=== PATIENT | female | born 1985 | race Hispanic/Latino ===

== ENCOUNTER 2020-09-09 22:16 | Emergency (ER) | payer OTHER ==
[~2020-09-09] VITALS: Ht 157.5 cm; Wt 119.3 kg
[2020-09-09] MEDS ORDERED: BACTRIM DS TAB1 EACH PO (23:40)
== END 2020-09-09 23:45 | disposition home or self-care (01) ==
LOC: FSED 23:37
DX: L02.214 Cutaneous abscess of groin (principal); I10 Essential (primary) hypertension; E11.9 Type 2 diabetes mellitus without complications; E78.5 Hyperlipidemia, unspecified; J45.909 Unspecified asthma, uncomplicated
CPT/HCPCS: 99283

== ENCOUNTER 2020-10-10 15:13 | Emergency (ER) | payer OTHER ==
[~2020-10-10] VITALS: Ht 157.5 cm; Wt 118.8 kg
[~2020-10-10 15:13] MED LIST: BACTRIM DS TAB1 EACH PO
[2020-10-10] MEDS ORDERED: ACETAMINOPHEN 325 MG TAB PO ONE (15:45)
[2020-10-10] MEDS ORDERED: FAMOTIDINE 20 MG/2 ML VIAL IV ONE ×2 (15:45→16:43)
[2020-10-10] MEDS ORDERED: FAMOTIDINE20 MG PO (16:33)
[2020-10-10] MEDS ORDERED: ACETAMINOPHEN500 MG PO (16:33)
[2020-10-10] MEDS ORDERED: IBUPROFEN IB200 MG PO (16:33)
[2020-10-10] MEDS ORDERED: ACETAMINOPHEN 325 MG TAB ONE (16:42)
== END 2020-10-10 17:11 | disposition home or self-care (01) ==
LOC: FSED 15:45
DX: R07.89 Other chest pain (principal); R00.0 Tachycardia, unspecified; R94.31 Abnormal electrocardiogram [ECG] [EKG]; I10 Essential (primary) hypertension; E11.9 Type 2 diabetes mellitus without complications; E78.5 Hyperlipidemia, unspecified; J45.909 Unspecified asthma, uncomplicated; F43.10 Post-traumatic stress disorder, unspecified
CPT/HCPCS: 71046; 80053; 81003; 82553; 84484; 85025; 93005; 99284

== ENCOUNTER 2020-11-06 19:41 | Emergency (ER) | payer OTHER ==
[~2020-11-06] VITALS: Ht 157.5 cm; Wt 118.8 kg
[~2020-11-06 19:41] MED LIST changes: +ACETAMINOPHEN500 MG PO; +FAMOTIDINE20 MG PO; +IBUPROFEN IB200 MG PO
[2020-11-06] MEDS ORDERED: SODIUM CHLORIDE 0.9% 1000ML 1,000 ML IV STA (20:43)
[2020-11-06] MEDS ORDERED: ONDANSETRON HCL INJ 2MG/ML 2ML 2 MG/ML VIAL IV ONE (20:45)
[2020-11-06] MEDS ORDERED: FAMOTIDINE 20 MG/2 ML VIAL IV ONE ×2 (20:45→22:01)
[2020-11-06] MEDS ORDERED: KETOROLAC TROMETHAMINE 30 MG/ML VIAL IV ONE (20:45)
[2020-11-06] MEDS ORDERED: SODIUM CHLORIDE 0.9% 50ML 50 ML ONE (21:06)
[2020-11-06] MEDS ORDERED: IOPAMIDOL 370 MG/ML 200 ML INFUS..BTL INJ ONE (21:06)
[2020-11-06] MEDS ORDERED: SODIUM CHLORIDE 0.9% 1000ML 1,000 ML ONE (22:01)
[2020-11-06] MEDS ORDERED: KETOROLAC TROMETHAMINE 30 MG/ML VIAL ONE (22:01)
[2020-11-06] MEDS ORDERED: ONDANSETRON HCL INJ 2MG/ML 2ML 2 MG/ML VIAL ONE (22:01)
[2020-11-06] MEDS ORDERED: OMEPRAZOLE40 MG PO (22:50)
[2020-11-06] MEDS ORDERED: ONDANSETRON ODT4 MG PO (22:50)
[2020-11-06 23:06] VITALS: BP 121/63
== END 2020-11-06 23:06 | disposition home or self-care (01) ==
LOC: FSED 20:40
DX: R10.11 Right upper quadrant pain (principal); R11.0 Nausea; R16.0 Hepatomegaly, not elsewhere classified; K76.0 Fatty (change of) liver, not elsewhere classified; E11.65 Type 2 diabetes mellitus with hyperglycemia; I10 Essential (primary) hypertension; E78.5 Hyperlipidemia, unspecified; J45.909 Unspecified asthma, uncomplicated; F32.9 Major depressive disorder, single episode, unspecified
CPT/HCPCS: 74176; 80053; 81003; 85025; 96374; 96375; 96376; 99284; J1885; J2405; J7030; Q9967

== ENCOUNTER 2020-12-15 13:53 | Emergency (ER) | payer OTHER ==
[~2020-12-15] VITALS: Ht 157.5 cm; Wt 117.5 kg
[~2020-12-15 13:53] MED LIST changes: +OMEPRAZOLE40 MG PO; +ONDANSETRON ODT4 MG PO
[2020-12-15] MEDS ORDERED: CIPRO500 MG PO (15:35)
[2020-12-15] MEDS ORDERED: OXYBUTYNIN CHLOR5 MG PO (15:38)
== END 2020-12-15 15:51 | disposition home or self-care (01) ==
LOC: FSED 14:42
DX: N32.81 Overactive bladder (principal); R39.11 Hesitancy of micturition; E11.9 Type 2 diabetes mellitus without complications; I10 Essential (primary) hypertension; E03.9 Hypothyroidism, unspecified; E78.5 Hyperlipidemia, unspecified; F31.9 Bipolar disorder, unspecified; J45.909 Unspecified asthma, uncomplicated; F17.210 Nicotine dependence, cigarettes, uncomplicated
CPT/HCPCS: 81003; 99283

== ENCOUNTER 2021-02-03 17:30 | Emergency (ER) | payer OTHER ==
[~2021-02-03] VITALS: Ht 167.6 cm; Wt 117.5 kg
[~2021-02-03 17:30] MED LIST changes: +CIPRO500 MG PO; +OXYBUTYNIN CHLOR5 MG PO
[2021-02-03] MEDS ORDERED: ONDANSETRON HCL INJ 2MG/ML 2ML 2 MG/ML VIAL IV STA (18:32)
[2021-02-03] MEDS ORDERED: Morphine 4mg Syringe 4 MG/ML INJ IV STA (18:32)
[2021-02-03] MEDS ORDERED: SODIUM CHLORIDE 0.9% 50ML 50 ML ONE (18:36)
[2021-02-03] MEDS ORDERED: IOPAMIDOL 370 MG/ML 200 ML INFUS..BTL INJ ONE (18:37)
== END 2021-02-03 19:58 | disposition home or self-care (01) ==
LOC: FSED 17:42
DX: R10.31 Right lower quadrant pain (principal); I10 Essential (primary) hypertension; E11.9 Type 2 diabetes mellitus without complications; E78.5 Hyperlipidemia, unspecified; E03.9 Hypothyroidism, unspecified; J45.909 Unspecified asthma, uncomplicated; F31.9 Bipolar disorder, unspecified
CPT/HCPCS: 74176; 80053; 81003; 81025; 85025; 99283; Q9967

== ENCOUNTER 2021-04-10 10:52 | Emergency (ER) | payer OTHER ==
[~2021-04-10] VITALS: Ht 157.5 cm; Wt 100.3 kg
[2021-04-10] MEDS ORDERED: CLINDAMYCIN 600MG / 50ML 50 ML IV ONE ×2 (13:33→14:00)
[2021-04-10] MEDS ORDERED: LIDOCAINE HCL 1% LOCAL INJ 20 ML VIAL ONE (13:33)
[2021-04-10] MEDS ORDERED: CLEOCIN HCL300 MG PO (14:42)
[2021-04-10] MEDS ORDERED: BACTRIM DS TAB1 EACH PO (14:42)
[2021-04-10] MEDS ORDERED: HYDROCODON-ACE1 EA12 PO (14:43)
[2021-04-10] MEDS ORDERED: MUPIROCIN22 GM TOP (14:54)
[2021-04-10 15:01] VITALS: BP 100/69
== END 2021-04-10 15:01 | disposition home or self-care (01) ==
LOC: FSED 11:36
DX: N61.1 Abscess of the breast and nipple (principal); L02.416 Cutaneous abscess of left lower limb; E11.9 Type 2 diabetes mellitus without complications; I10 Essential (primary) hypertension; E78.5 Hyperlipidemia, unspecified; E03.9 Hypothyroidism, unspecified; F43.10 Post-traumatic stress disorder, unspecified; F31.9 Bipolar disorder, unspecified
CPT/HCPCS: 10061; 80053; 85025; 99283; J2001

== ENCOUNTER 2021-09-15 07:20 | Emergency (ER) | payer OTHER ==
[~2021-09-15] VITALS: Ht 157.5 cm; Wt 81.6 kg
[~2021-09-15 07:20] MED LIST changes: +CLEOCIN HCL300 MG PO; +HYDROCODON-ACE1 EA12 PO; +MUPIROCIN22 GM TOP; +NAPROSYN500 MG PO
[2021-09-15] MEDS ORDERED: PREDNISONE20 MG PO (09:19)
[2021-09-15] MEDS ORDERED: PROVENTIL HFA6.7 GM INH (09:19)
== END 2021-09-15 09:20 | disposition home or self-care (01) ==
LOC: FSED 07:59
DX: R06.00 Dyspnea, unspecified (principal); J45.909 Unspecified asthma, uncomplicated; R00.1 Bradycardia, unspecified; I10 Essential (primary) hypertension; E78.5 Hyperlipidemia, unspecified; E03.9 Hypothyroidism, unspecified; R94.31 Abnormal electrocardiogram [ECG] [EKG]
CPT/HCPCS: 71045; 80053; 85025; 85379; 93005; 99283

== ENCOUNTER 2021-09-21 16:30 | Emergency (ER) | payer OTHER ==
[~2021-09-21] VITALS: Ht 157.5 cm; Wt 81.6 kg
[~2021-09-21 16:30] MED LIST changes: +PREDNISONE20 MG PO; +PROVENTIL HFA6.7 GM INH
[2021-09-21 17:05] VITALS: BP 100/65
[2021-09-21] MEDS ORDERED: MULTI-VITAMIN1 EACH PO (17:11)
[2021-09-21] MEDS ORDERED: MELATONIN3 MG PO (17:11)
[2021-09-21] MEDS ORDERED: SODIUM CHLORIDE 0.9% 1000ML 1,000 ML IV ONE (17:30)
[2021-09-21] MEDS ORDERED: SODIUM CHLORIDE 0.9% 1000ML 1,000 ML ONE (17:54)
== END 2021-09-21 20:09 | disposition home or self-care (01) ==
LOC: FSED 16:38
DX: R00.2 Palpitations (principal); R42 Dizziness and giddiness; I10 Essential (primary) hypertension; E78.5 Hyperlipidemia, unspecified; E03.9 Hypothyroidism, unspecified; J45.909 Unspecified asthma, uncomplicated; F31.9 Bipolar disorder, unspecified; Z98.84 Bariatric surgery status; F17.210 Nicotine dependence, cigarettes, uncomplicated
CPT/HCPCS: 93005; 99283; J7030

== ENCOUNTER 2021-10-27 09:50 | Emergency (ER) | payer OTHER ==
[~2021-10-27] VITALS: Ht 157.5 cm; Wt 81.6 kg
[~2021-10-27 09:50] MED LIST changes: +MELATONIN3 MG PO; +MULTI-VITAMIN1 EACH PO
[2021-10-27] MEDS ORDERED: ONDANSETRON HCL INJ 2MG/ML 2ML 2 MG/ML VIAL IV STA (10:19)
[2021-10-27] MEDS ORDERED: FAMOTIDINE 20 MG/2 ML VIAL IV STA (10:19)
[2021-10-27] MEDS ORDERED: DICYCLOMINE HCL 20 MG/2 ML VIAL IM ONE ×2 (10:30→10:42)
[2021-10-27] MEDS ORDERED: SODIUM CHLORIDE 0.9% 1000ML 1,000 ML IV SCH (10:30)
[2021-10-27] MEDS ORDERED: ONDANSETRON HCL INJ 2MG/ML 2ML 2 MG/ML VIAL ONE (10:42)
[2021-10-27] MEDS ORDERED: SODIUM CHLORIDE 0.9% 1000ML 1,000 ML ONE (10:42)
[2021-10-27] MEDS ORDERED: FAMOTIDINE 20 MG/2 ML VIAL IV ONE (10:43)
[2021-10-27] MEDS ORDERED: DIATRIZOATE MEGL/DIATRIZOA SOD 30 ML BTL PO ONE (10:49)
[2021-10-27] MEDS ORDERED: IOPAMIDOL 370 MG/ML 100 ML INFUS..BTL INJ ONE (10:49)
[2021-10-27] MEDS ORDERED: ONDANSETRON ODT4 MG PO (12:31)
[2021-10-27] MEDS ORDERED: DICYCLOMINE HCL20 MG PO (12:31)
== END 2021-10-27 12:45 | disposition home or self-care (01) ==
LOC: FSED 10:14
DX: R10.9 Unspecified abdominal pain (principal); R11.2 Nausea with vomiting, unspecified; R91.8 Other nonspecific abnormal finding of lung field; I10 Essential (primary) hypertension; E78.5 Hyperlipidemia, unspecified; E03.9 Hypothyroidism, unspecified; F31.9 Bipolar disorder, unspecified; F43.10 Post-traumatic stress disorder, unspecified; Z98.84 Bariatric surgery status; F17.210 Nicotine dependence, cigarettes, uncomplicated
CPT/HCPCS: 74177; 80053; 81003; 81025; 85025; 99284; J0500; J2405; J7030; Q9967

== ENCOUNTER 2022-03-14 20:42 | Emergency (ER) | payer OTHER ==
[~2022-03-14] VITALS: Ht 157.5 cm; Wt 77.1 kg
[~2022-03-14 20:42] MED LIST changes: +AMOX TR-K CLV1 EAC2 PO; +DICYCLOMINE HCL20 MG PO
[2022-03-14] MEDS ORDERED: SODIUM CHLORIDE 0.9% 1000ML 1,000 ML IV STA (21:03)
[2022-03-14] MEDS ORDERED: ONDANSETRON HCL INJ 2MG/ML 2ML 2 MG/ML VIAL IV ONE (21:15)
[2022-03-14] MEDS ORDERED: KETOROLAC TROMETHAMINE 30 MG/ML VIAL IV ONE (21:15)
[2022-03-14] MEDS ORDERED: SODIUM CHLORIDE 0.9% 1000ML 1,000 ML ONE (21:44)
[2022-03-14] MEDS ORDERED: ONDANSETRON HCL INJ 2MG/ML 2ML 2 MG/ML VIAL ONE (21:44)
[2022-03-14] MEDS ORDERED: KETOROLAC TROMETHAMINE 30 MG/ML VIAL ONE (21:44)
[2022-03-14 22:21] VITALS: BP 105/61
== END 2022-03-14 22:21 | disposition home or self-care (01) ==
LOC: FSED 20:54
DX: R11.2 Nausea with vomiting, unspecified (principal); K52.9 Noninfective gastroenteritis and colitis, unspecified; R10.31 Right lower quadrant pain; I10 Essential (primary) hypertension; E78.5 Hyperlipidemia, unspecified; E03.9 Hypothyroidism, unspecified; J45.909 Unspecified asthma, uncomplicated; F31.9 Bipolar disorder, unspecified; Z98.84 Bariatric surgery status; F17.210 Nicotine dependence, cigarettes, uncomplicated
CPT/HCPCS: 74176; 80048; 80076; 81003; 85025; 96374; 96375; 96376; 99284; C9113; J1885; J2405; J7030

== ENCOUNTER 2022-08-25 23:59 | Emergency (ER) | payer OTHER ==
[~2022-08-25] VITALS: Ht 157.5 cm; Wt 82.1 kg
[2022-08-26] MEDS ORDERED: ALBUTEROL SULF 0.083% NEB SOLN 3 ML NEB NEB STA (00:14)
[2022-08-26] MEDS ORDERED: PEPCID20 MG PO (00:19)
[2022-08-26] MEDS ORDERED: ZITHROMAX250 MG PO (00:19)
[2022-08-26] MEDS ORDERED: ALBUTEROL SULF 0.083% NEB SOLN 3 ML NEB ONE (00:26)
[2022-08-26 00:45] VITALS: BP 109/62
== END 2022-08-26 00:45 | disposition home or self-care (01) ==
LOC: FSED 08-26 00:03
DX: R05.9 Cough, unspecified (principal); J20.9 Acute bronchitis, unspecified; I10 Essential (primary) hypertension; E03.9 Hypothyroidism, unspecified; K21.9 Gastro-esophageal reflux disease without esophagitis; F43.10 Post-traumatic stress disorder, unspecified; F17.210 Nicotine dependence, cigarettes, uncomplicated; Z98.84 Bariatric surgery status
CPT/HCPCS: 99282

== ENCOUNTER 2023-05-18 20:00 | Emergency (ER) | payer OTHER ==
[~2023-05-18] VITALS: Ht 157.5 cm; Wt 79.8 kg
[~2023-05-18 20:00] MED LIST changes: +ALBUTEROL2.5 MG/3 M INH; +CEFDINIR300 MG PO; +DOCUSATE SODIU100 MG PO; +DOXYCYCLINE MO100 M1 PO; +IBUPROFEN600 MG PO; +METRONIDAZOLE500 MG PO; +MIRALAX17 GM PO; +PEPCID20 MG PO; +ZITHROMAX250 MG PO
[2023-05-18] MEDS ORDERED: SODIUM CHLORIDE 0.9% 1000ML 1,000 ML IV STA (20:16)
[2023-05-18] MEDS ORDERED: KETOROLAC TROMETHAMINE 30 MG/ML VIAL IV STA (20:16)
[2023-05-18] MEDS ORDERED: FAMOTIDINE 20 MG/2 ML VIAL IV ONE ×2 (20:30→20:32)
[2023-05-18] MEDS ORDERED: ACETAMINOPHEN 325 MG TAB PO ONE (20:30)
[2023-05-18] MEDS ORDERED: ONDANSETRON HCL INJ 2MG/ML 2ML 2 MG/ML VIAL IV ONE (20:30)
[2023-05-18] MEDS ORDERED: SODIUM CHLORIDE 0.9% 1000ML 1,000 ML ONE (20:31)
[2023-05-18] MEDS ORDERED: KETOROLAC TROMETHAMINE 30 MG/ML VIAL ONE (20:31)
[2023-05-18] MEDS ORDERED: ONDANSETRON HCL INJ 2MG/ML 2ML 2 MG/ML VIAL ONE (20:31)
[2023-05-18] MEDS ORDERED: ACETAMINOPHEN 325 MG TAB ONE (20:31)
[2023-05-18] MEDS ORDERED: ONDANSETRON ODT4 MG PO (23:15)
[2023-05-18] MEDS ORDERED: ULTRAM 50MG50 MG PO (23:15)
[2023-05-18] MEDS ORDERED: IBUPROFEN200 MG PO (23:15)
[2023-05-18 23:38] VITALS: BP 109/72; PULSE 88; RESP 18; TEMP 97.6; O2SAT 97
== END 2023-05-18 23:38 | disposition home or self-care (01) ==
LOC: FSED 20:04
DX: R10.2 Pelvic and perineal pain (principal); N83.202 Unspecified ovarian cyst, left side; I10 Essential (primary) hypertension; E78.5 Hyperlipidemia, unspecified; E03.9 Hypothyroidism, unspecified; J45.909 Unspecified asthma, uncomplicated; K21.9 Gastro-esophageal reflux disease without esophagitis; F43.10 Post-traumatic stress disorder, unspecified; Z98.84 Bariatric surgery status; F17.210 Nicotine dependence, cigarettes, uncomplicated
CPT/HCPCS: 74176; 80053; 81003; 81025; 85025; 93976; 96374; 96375; 99284; J1885; J2405; J7030

== ENCOUNTER 2023-12-27 17:30 | Emergency (ER) | payer OTHER ==
[~2023-12-27] VITALS: Ht 157.5 cm; Wt 81.6 kg
[~2023-12-27 17:30] MED LIST changes: +FIORICET 50-301 EACH PO; +IBUPROFEN200 MG PO; +ULTRAM 50MG50 MG PO
[2023-12-27 17:35] VITALS: PULSE 90; RESP 18; TEMP 99.4; O2SAT 98
[2023-12-27] MEDS ORDERED: IOPAMIDOL 370 MG/ML 100 ML INFUS..BTL INJ ONE (18:09)
[2023-12-27] MEDS ORDERED: DONNATAL/LIDOCAINE/MAALOX 30 ML SUSP PO ONE (18:15)
[2023-12-27] MEDS: LIDOCAINE VISC 2% SOLN 15 ML UDC PO ONE (18:50)
[2023-12-27] MEDS: FAMOTIDINE 20 MG/2 ML VIAL IV STA (18:51)
[2023-12-27] MEDS: MAGNESIUM/ALUMINUM/SIMETHICONE 30 ML UDC PO ONE (18:51)
[2023-12-27] MEDS: ONDANSETRON HCL INJ 2MG/ML 2ML 2 MG/ML VIAL IV STA (18:51)
[2023-12-27] MEDS: BELLADONNA ALK/PHENOBARBITAL 5 ML UDC PO ONE (18:52)
== END 2023-12-27 19:31 | disposition home or self-care (01) ==
LOC: FSED 18:06
DX: R10.13 Epigastric pain (principal); Z98.84 Bariatric surgery status
CPT/HCPCS: 74177; 99284; J2405; Q9967

== ENCOUNTER 2024-01-08 08:41 | Emergency (ER) | payer OTHER ==
[~2024-01-08] VITALS: Ht 157.5 cm; Wt 85.4 kg
[2024-01-08 10:45] VITALS: PULSE 58; RESP 16; TEMP 98.6; O2SAT 100
== END 2024-01-08 10:14 | disposition home or self-care (01) ==
LOC: FSED 08:55
DX: S00.83XA Contusion of other part of head, initial encounter (principal); R51.9 Headache, unspecified; W50.0XXA Accidental hit or strike by another person, initial encounter; Y92.89 Other specified places as the place of occurrence of the external cause; I10 Essential (primary) hypertension; E11.9 Type 2 diabetes mellitus without complications; E78.5 Hyperlipidemia, unspecified; K05.10 Chronic gingivitis, plaque induced; E03.9 Hypothyroidism, unspecified; K21.9 Gastro-esophageal reflux disease without esophagitis; Z98.84 Bariatric surgery status
CPT/HCPCS: 70450; 70486; 99283

== ENCOUNTER 2024-02-02 16:56 | Emergency (ER) | payer OTHER ==
[~2024-02-02] VITALS: Ht 157.5 cm; Wt 85.3 kg
[2024-02-02 17:24] VITALS: PULSE 75; RESP 18; TEMP 99.7; O2SAT 98
[2024-02-02] MEDS ORDERED: TYLENOL325 MG PO (17:42)
[2024-02-02] MEDS ORDERED: ZANAFLEX4 MG PO (17:42)
[2024-02-02] MEDS: PREDNISONE 20 MG TAB PO ONE (17:58)
[2024-02-02] MEDS: ACETAMINOPHEN 325 MG TAB PO ONE (17:59)
[2024-02-02] MEDS: KETOROLAC TROMETHAMINE 30 MG/ML VIAL IM ONE (18:07)
== END 2024-02-02 18:21 | disposition home or self-care (01) ==
LOC: FSED 16:58
DX: M54.2 Cervicalgia (principal); M54.12 Radiculopathy, cervical region; I10 Essential (primary) hypertension; E11.9 Type 2 diabetes mellitus without complications; E78.5 Hyperlipidemia, unspecified; E03.9 Hypothyroidism, unspecified; K21.9 Gastro-esophageal reflux disease without esophagitis; F32.A Depression, unspecified; Z98.84 Bariatric surgery status
CPT/HCPCS: 72125; 96372; 99283; J1885; J7512

== ENCOUNTER 2024-05-16 09:30 | Emergency (ER) | payer OTHER ==
[~2024-05-16] VITALS: Ht 157.5 cm; Wt 87.5 kg
[~2024-05-16 09:30] MED LIST changes: +TYLENOL325 MG PO; +ZANAFLEX4 MG PO
[2024-05-16 10:00] VITALS: PULSE 84; RESP 20; TEMP 98.4; O2SAT 98
[2024-05-16] MEDS ORDERED: IBUPROFEN600 MG PO (10:10)
[2024-05-16] MEDS: ACETAMINOPHEN 325 MG TAB PO ONE (10:28)
[2024-05-16] MEDS: IBUPROFEN 600 MG TAB PO ONE (10:28)
== END 2024-05-16 10:43 | disposition home or self-care (01) ==
LOC: FSED 09:41
DX: S93.691A Other sprain of right foot, initial encounter (principal); W10.8XXA Fall (on) (from) other stairs and steps, initial encounter; Y93.01 Activity, walking, marching and hiking; Y92.89 Other specified places as the place of occurrence of the external cause; I10 Essential (primary) hypertension; E11.9 Type 2 diabetes mellitus without complications; E78.5 Hyperlipidemia, unspecified; E03.9 Hypothyroidism, unspecified; J45.909 Unspecified asthma, uncomplicated; K21.9 Gastro-esophageal reflux disease without esophagitis; F31.9 Bipolar disorder, unspecified; Z98.84 Bariatric surgery status
CPT/HCPCS: 99284

== ENCOUNTER 2024-08-07 20:13 | Emergency (ER) | payer OTHER ==
[~2024-08-07] VITALS: Ht 157.5 cm; Wt 89.4 kg
[2024-08-07] MEDS: KETOROLAC TROMETHAMINE 30 MG/ML VIAL IV STA (21:10)
[2024-08-07] MEDS: FAMOTIDINE 20 MG/2 ML VIAL IV STA (21:10)
[2024-08-07] MEDS: ACETAMINOPHEN 325 MG TAB PO ONE (22:43)
[2024-08-07] MEDS ORDERED: IOPAMIDOL 370 MG/ML 100 ML INFUS..BTL INJ ONE (23:24)
[2024-08-08] MEDS ORDERED: KETOROLAC TROME10 MG PO (02:36)
[2024-08-08 02:46] VITALS: PULSE 62; RESP 16; TEMP 98.4
[2024-08-08 02:47] VITALS: BP 95/66; PULSE 62; RESP 16; TEMP 98.4; O2SAT 98
== END 2024-08-08 02:49 | disposition home or self-care (01) ==
LOC: FSED 20:17
DX: R10.31 Right lower quadrant pain (principal); N83.201 Unspecified ovarian cyst, right side; E11.9 Type 2 diabetes mellitus without complications; F60.9 Personality disorder, unspecified; Z98.84 Bariatric surgery status
CPT/HCPCS: 74177; 76856; 80048; 80076; 81003; 81025; 85025; 99284; J1885; Q9967

== ENCOUNTER 2024-12-19 08:54 | Emergency (ER) | payer OTHER ==
[~2024-12-19] VITALS: Ht 157.5 cm; Wt 91.3 kg
[~2024-12-19 08:54] MED LIST changes: +CEFIXIME400 MG PO; +KETOROLAC TROME10 MG PO
[2024-12-19] MEDS ORDERED: ESTRADIOL1 MG PO (09:35)
[2024-12-19] MEDS ORDERED: BENZONATATE100 MG PO (10:36)
[2024-12-19] MEDS ORDERED: VENTOLIN HFA18 GM INH (10:37)
[2024-12-19 10:47] VITALS: PULSE 53; RESP 16; TEMP 97.9; O2SAT 99
== END 2024-12-19 10:47 | disposition home or self-care (01) ==
LOC: FSED 09:14
DX: R06.00 Dyspnea, unspecified (principal); R05.9 Cough, unspecified; E78.5 Hyperlipidemia, unspecified; F43.10 Post-traumatic stress disorder, unspecified; F31.9 Bipolar disorder, unspecified; Z11.52 Encounter for screening for COVID-19; Z98.84 Bariatric surgery status
CPT/HCPCS: 0223U; 87400; 99283

== ENCOUNTER 2024-12-22 18:57 | Emergency (ER) | payer OTHER ==
[~2024-12-22] VITALS: Ht 157.5 cm; Wt 91.2 kg
[~2024-12-22 18:57] MED LIST changes: +BENZONATATE100 MG PO; +ESTRADIOL1 MG PO; +VENTOLIN HFA18 GM INH
[2024-12-22 19:05] VITALS: PULSE 63; RESP 18; TEMP 98.8
[2024-12-22] MEDS ORDERED: CODEINE-GUAIFE120 ML PO (20:10)
[2024-12-22 21:00] VITALS: BP 100/63; PULSE 60; RESP 15; TEMP 98.6; O2SAT 99
== END 2024-12-22 20:21 | disposition home or self-care (01) ==
LOC: FSED 19:23
DX: R05.9 Cough, unspecified (principal); E78.5 Hyperlipidemia, unspecified; F31.9 Bipolar disorder, unspecified; Z98.84 Bariatric surgery status
CPT/HCPCS: 71046; 99283

== ENCOUNTER 2025-01-28 17:37 | Emergency (ER) | payer OTHER ==
[~2025-01-28] VITALS: Ht 157.5 cm; Wt 91.2 kg
[~2025-01-28 17:37] MED LIST changes: +CODEINE-GUAIFE120 ML PO
[2025-01-28 17:45] VITALS: PULSE 56; RESP 18; TEMP 98.7
[2025-01-28] MEDS: ALPRAZOLAM 0.25 MG TAB PO ONE (19:08)
[2025-01-28] MEDS: ALBUTEROL SULF 0.083% NEB SOLN 3 ML NEB NEB STA (19:09)
[2025-01-28 19:44] VITALS: BP 114/66; PULSE 56; RESP 18; TEMP 98.6; O2SAT 95
== END 2025-01-28 19:44 | disposition home or self-care (01) ==
LOC: FSED 18:06
DX: R11.0 Nausea (principal); R07.89 Other chest pain; F41.9 Anxiety disorder, unspecified; E78.5 Hyperlipidemia, unspecified; F31.9 Bipolar disorder, unspecified; Z98.84 Bariatric surgery status; F17.210 Nicotine dependence, cigarettes, uncomplicated
CPT/HCPCS: 80048; 84484; 85025; 93005; 99283

== ENCOUNTER 2025-02-14 18:29 | Emergency (ER) | payer OTHER ==
[~2025-02-14] VITALS: Ht 157.5 cm; Wt 91.2 kg
[2025-02-14] MEDS: ACETAMINOPHEN 1000 MG/100 ML IV STA (20:10)
[2025-02-14] MEDS: SODIUM CHLORIDE 0.9% 1000ML 1,000 ML IV ONE (20:10)
[2025-02-14] MEDS ORDERED: IOPAMIDOL 370 MG/ML 100 ML INFUS..BTL INJ ONE (20:11)
[2025-02-14 22:20] VITALS: PULSE 67; RESP 17; TEMP 98
[2025-02-14 22:34] VITALS: BP 102/66; PULSE 67; RESP 17; TEMP 98; O2SAT 100
== END 2025-02-14 22:37 | disposition home or self-care (01) ==
LOC: FSED 18:33
DX: R10.30 Lower abdominal pain, unspecified (principal); E78.5 Hyperlipidemia, unspecified; F31.9 Bipolar disorder, unspecified; F60.9 Personality disorder, unspecified; Z98.84 Bariatric surgery status; F17.210 Nicotine dependence, cigarettes, uncomplicated
CPT/HCPCS: 74177; 80053; 81003; 85025; 99284; J0131; J7030; Q9967